=== PATIENT | female | born 1950 | race Caucasian/White ===

== ENCOUNTER 2025-02-05 10:30 | Outpatient (OUT) | payer MEDICARE, OTHER, SELFPAY ==
--- OUTSIDE RECORDS SUMMARY | 2024-04-21 06:55 | XMS_ITS ---
Author Organization The [facility] in [place] Address [address] [place] [address] Care Team Providers Care Emergency Room Clerk Name Role Phone Juan Luis Wilkes MD Primary Care Provider Unavailab le Provider, Lab Unavailable [phone] REASON FOR VISIT jma Encounters Encounter Location Date Provider Diagnosis [facility] [address] [place] [address] 04/21/2024 Lab Provider Plan Of Treatment Next Appt Details Provider Name:Benny escobar, 03/14/2025 11:30:00 AM, [address], [address], [place], [address], Provider Name:Benny escobar, 03/21/2025 10:00:00 AM, [address], [address], [place], [address], Provider Name:Benny escobar, 04/04/2025 11:30:00 AM, [address], [address], [place], [address], Provider Name:Radha Jenkins , 11/24/2025 10:30:00 AM, [address] [place] [address] [place], [address], Progress Notes * Rhiannon COBB KDOB:1950 (74 yo F)Acc No.[id number]:04/21/2024 UNLOCKED PROGRESS NOTE Progress Note Patient: Kevin Rhiannon CLEMENT :?Lab ProviderDOB:1950???Age:73 Y???Sex: FemaleDate:04/21/2024Phone:[phone]:[address], [id number]:Clarice Ashford In:10:57 AM ESTCheck Out:11:00 AM EST Subjective: * Chief Complaints: * 1 . Jma. * Medical History: Objective: * Vitals: Assessment: Plan: * Treatment: * * Electronic signature of Lab Provider on 02/05/2025 at 10:42 AM EDTSign off status: PendingVisit Status:?CHK (Check Out) * Provider: Ananya bashir Provider Date: 0 04/21/2024 Generated for Printing/Faxing/eTransmitting on:?02/05/2025 10:42 AM EDT
--- OUTSIDE RECORDS SUMMARY | 2024-04-29 06:30 | XMS_ITS ---
Author Organization The [facility] in [place] Address [address] [place] [address] Care Team Providers Care Belt Loop Cutter Name Role Phone Juan Luis Wilkes MD Primary Care Provider Unavailab Bill Avilez Unavailable [phone] REASON FOR VISIT CL1 Encounters Encounter Location Date Provider Diagnosis [address] [address] 04/29/2024 iBll Zheng Plan Of Treatment Next Appt Details Provider Name:Benny escobar, 03/14/2025 11:30:00 AM, [address], [address], [place], [address], Provider Name:Benny escobar, 03/21/2025 10:00:00 AM, [address], [address], [place], [address], Provider Name:Benny escobar, 04/04/2025 11:30:00 AM, [address], [address], [place], [address], Provider Name:Radha Jenkins , 11/24/2025 10:30:00 AM, [address] [place] [address] [place], [address], Progress Notes * Rhiannon COBB KDOB:1950 (74 yo F)Acc No.[id number]:04/29/2024 UNLOCKED PROGRESS NOTE Progress Note Patient: Rhiannon YUEN :?Bill Zheng, MDDOB:1950???Age:73 Y ???Sex:FemaleDate:04/29/2024Phone:[phone]:[address] [place], [id number]:Juan Luis Wilkes MD Subjective: * Chief Complaints: * 1 . CL1. * Medical History: Objective: * Vitals: Assessment: Plan: * Treatment: * * Electronic signature of Bill Zheng MD, [id number] on 02/05/2025 at 10:42 AM EDTSign off status: PendingVisit Status:?PEN (Pending) * Provider: Nuha Zheng MD Date: 0 04/29/2024 Generated for Printing/Faxing/eTransmitting on:?02/05/2025 10:42 AM EDT
--- OUTSIDE RECORDS SUMMARY | 2024-04-30 06:30 | XMS_ITS ---
Author Organization The [facility] in [place] Address [address] [place] [address] Care Team Providers Care Wheel Polisher Name Role Phone Juan Luis Wilkes MD Primary Care Provider Tracy Segundo Unavailable [phone] REASON FOR VISIT MD MidLevel Visit Encounters Encounter Location Date Provider Diagnosis [address] [address] 04/30/2024 Tracy James Plan Of Treatment Next Appt Details Provider Name:Benny escobar, 03/14/2025 11:30:00 AM, [address], [address], [place], [address], Provider Name:Benny escobar, 03/21/2025 10:00:00 AM, [address], [address], [place], [address], Provider Name:Benny escobar, 04/04/2025 11:30:00 AM, [address], [address], [place], [address], Provider Name:Radha Jenkins , 11/24/2025 10:30:00 AM, [address] [place] [address] [place], [address], Progress Notes * Rhiannon COBB KDOB:1950 (74 yo F)Acc No.[id number]:04/30/2024 UNLOCKED PROGRESS NOTE Progress Notes Patient: Rhiannon YUEN :?Tracy James NPDOB:1950???Age:73 Y ???Sex:FemaleDate:04/30/2024Phone:[phone]:[address] [facility], [id number]:Juan Luis Wilkes MD Subjective: * Chief Complaints: * 1 . MD MidLevel Visit. * Medical History: Objective: * Vitals: Assessment: Plan: * Treatment: * * Electronic signature of Tracy James NP, [id number] on 02/05/2025 at 10:42 AM EDTSign off status: PendingVisit Status:?VOICEMSG (Voice) * Provider: Jeffrey James NP Date: 0 04/30/2024 Generated for Printing/Faxing/eTransmitting on:?02/05/2025 10:42 AM EDT
--- OUTSIDE RECORDS SUMMARY | 2024-10-21 09:30 | XMS_ITS ---
Author Organization The [facility] in [place] Address [address] [place] [address] Care Team Providers Care Youth Program Director Name Role Phone Juan Luis Wilkes MD Primary Care Provider Unavailab le Provider, Lab Unavailable [phone] REASON FOR VISIT CH Encounters Encounter Location Date Provider Diagnosis [facility] [address] [place] [address] 10/21/2024 Lab Provider Plan Of Treatment Next Appt Details Provider Name:Benny escobar, 03/14/2025 11:30:00 AM, [address], [address], [place], [address], Provider Name:Benny escobar, 03/21/2025 10:00:00 AM, [address], [address], [place], [address], Provider Name:Benny escobar, 04/04/2025 11:30:00 AM, [address], [address], [place], [address], Provider Name:Radha Jenkins , 11/24/2025 10:30:00 AM, [address] [place] [address], [address], Progress Notes * Rhiannon COBB KDOB:1950 (74 yo F)Acc No.[id number]:10/21/2024 UNLOCKED PROGRESS NOTE Progress Note Patient: Kevin Rhiannon CLEMENT :?Lab ProviderDOB:1950???Age:74 Y???Sex: FemaleDate:10/21/2024Phone:[phone]:[address] [place], [id number]:Clarice Ashford In:01:26 PM ESTCheck Out:01:29 PM EST Subjective: * Chief Complaints: * 1 . CH. * Medical History: Objective: * Vitals: Assessment: Plan: * Treatment: * * Electronic signature of Lab Provider on 02/05/2025 at 10:41 AM EDTSign off status: PendingVisit Status:?CHK (Check Out) * Provider: Ananya bashir Provider Date: 0 10/21/2024 Generated for Printing/Faxing/eTransmitting on:?02/05/2025 10:41 AM EDT
--- OUTSIDE RECORDS SUMMARY | 2024-10-29 06:30 | XMS_ITS ---
Author Organization The [facility] in [place] Address [address] [place] [address] Care Team Providers Care Incinerator Operator Name Role Phone Juan Luis Wilkes MD Primary Care Provider Tracy Segundo Unavailable [phone] REASON FOR VISIT MD MidLevel Visit Encounters Encounter Location Date Provider Diagnosis [address] [address] 10/29/2024 Tracy James Plan Of Treatment Next Appt Details Provider Name:Benny escobar, 03/14/2025 11:30:00 AM, [address], [address], [place], [address], Provider Name:Benny escobar, 03/21/2025 10:00:00 AM, [address], [address], [place], [address], Provider Name:Benny escobar, 04/04/2025 11:30:00 AM, [address], [address], [place], [address], Provider Name:Radha Jenkins , 11/24/2025 10:30:00 AM, [address] [place] [address] [place], [address], Progress Notes * Rhiannon COBB KDOB:1950 (74 yo F)Acc No.[id number]:10/29/2024 UNLOCKED PROGRESS NOTE Progress Notes Patient: Rhiannon YUEN :?Tracy James NPDOB:1950???Age:74 Y ???Sex:FemaleDate:10/29/2024Phone:[phone]:[address] [facility], [id number]:Juan Luis Wilkes MD Subjective: * Chief Complaints: * 1 . MD MidLevel Visit. * Medical History: Objective: * Vitals: Assessment: Plan: * Treatment: * * Electronic signature of Tracy James NP, [id number] on 02/05/2025 at 10:42 AM EDTSign off status: PendingVisit Status:?VOICEMSG (Voice) * Provider: Jeffrey James NP Date: 0 10/29/2024 Generated for Printing/Faxing/eTransmitting on:?02/05/2025 10:42 AM EDT
--- OUTSIDE RECORDS SUMMARY | 2024-11-12 05:10 | XMS_ITS ---
Author Organization The [facility] in [place] Address [address] [place] [address] Care Team Providers Care Oracle Database Architect Name Role Phone Juan Luis Wilkes MD Primary Care Provider Unavailab le Provider, Lab Unavailable [phone] Encounters Encounter Location Date Provider Diagnosis [facility] [address] [place] [address] 11/12/2024 Lab Provider Plan Of Treatment Next Appt Details Provider Name:Benny escobar, 03/14/2025 11:30:00 AM, [address], [address], [place], [address], Provider Name:Benny escobar, 03/21/2025 10:00:00 AM, [address], [address], [place], [address], Provider Name:Benny escobar, 04/04/2025 11:30:00 AM, [address], [address] Floor, [place], [address], Provider Name:Radha Jenkins , 11/24/2025 10:30:00 AM, [address] [place] [address] [place], [address], Progress Notes * Rhiannon COBB KDOB:1950 (74 yo F)Acc No.[id number]:11/12/2024 UNLOCKED PROGRESS NOTE Progress Note Patient: Kevin Rhiannon CLEMENT :?Lab ProviderDOB:1950???Age:74 Y???Sex: FemaleDate:11/12/2024Phone:[phone]:[address], [id number]:Clarice Ashford In:09:04 AM ESTCheck Out:09:12 AM EST Subjective: * Chief Complaints: * [address] * Medical History: Objective: * Vitals: Assessment: Plan: * Treatment: * * Electronic signature of Lab Provider on 02/05/2025 at 10:41 AM EDTSign off status: PendingVisit Status:?CHK (Check Out) * Provider: Ananya bashir Provider Date: 0 11/12/2024 Generated for Printing/Faxing/eTransmitting on:?02/05/2025 10:41 AM EDT
--- OUTSIDE RECORDS SUMMARY | 2025-01-20 06:00 | XMS_ITS ---
Author Organization The [facility] in [place] Address [address] [place] [address] Care Team Providers Care Boat Hoist Operator Helper Name Role Phone Juan Luis Wilkes MD Primary Care Provider Unavailab le Provider, Radiology Unavailable [phone] Encounters Encounter Location Date Provider Diagnosis Radiology [address] [address] 01/20/2025 Radiology Provider Plan Of Treatment Next Appt Details Provider Name:Benny escobar, 03/14/2025 11:30:00 AM, [address], [address], [place], [address], Provider Name:Benny escobar, 03/21/2025 10:00:00 AM, [address], [address] Floor, [place], [address], Provider Name:Benny escobar, 04/04/2025 11:30:00 AM, [address], [address] Floor, [place], [address], Provider Name:Radha Jenkins , 11/24/2025 10:30:00 AM, [address] [place] [address], [address], Progress Notes * Rhiannon COBB KDOB:1950 (74 yo F)Acc No.[id number]:01/20/2025 UNLOCKED PROGRESS NOTE Progress Note Patient: Kevin Rhiannon CLEMENT :?Radiology ProviderDOB:1950???Age:74 Y ???Sex:FemaleDate:01/20/2025External Visit ID:[id number]:[phone] Address:[address] [place], [place] [address]Pcp:Juan Luis Wilkes MD Subjective: * Chief Complaints: * * Active Problem List M16.11 Primary osteoarthrit is of right hip Modified On:02/22/2022U Status:wyqanfgjwK84.10Primary osteoarthritis of knee Modified On:09/14/2020U Status:xpxpliqztL11.9Multilevel degenerative disc disease Modified On:09/25/2016U Status:ebflcovqkV37.00Spinal stenosis, unspecified region other than cervical Modified On:07/14/2017U Status:hzqapvpymD81.7Fibromyalgia Modified On:09/14/2020U Status:zhwljwkqnZ90.0Primary osteoarthritis of both hips Modified On:08/14/2016U Status:wsbxldnutJ15.0Primary osteoarthritis of knees, bilateral Modified On:05/22/2016U Status:ifoterfzyA50.0Rheumatism Modified On:09/25/2016U Status:tskjgvmimW20.071Primary osteoarthritis, right ankle and foot Modified On:07/05/2016U Status:prlhmgfttX21.072Primary osteoarthritis, left ankle and foot Modified On:07/05/2016U Status:ctwuuuuxkT48.0Age-related osteoporosis without current pathological fracture Modified On:04/17/2023U Status:ingnsnpdkK98.9Gastroesophageal reflux disease, esophagitis presence not specified Modified On:09/10/2016U Status:giovszfvlU66.012Primary osteoarthritis of left shoulder Modified On:09/25/2016U Status:ljqqenvneT27.12Spondylolisthesis of cervical region Modified On:10/24/2016U Status:wtpfphtewM54.30Degenerative disc disease, cervical Modified On:07/14/2017U Status:gbzexesbuH37.16Spondylolisthesis of lumbar region Modified On:12/02/2016/U Status:qinvwbptsV82.29Other chronic pain Modified On:07/14/2017/U Status:lssgmnbylP10.0Primary osteoarthritis of both knees Modified On:01/14/2017/U Status:yumlmouvaT77.11Primary osteoarthritis of right knee Modified On:01/14/2017U Status:gfaqqdjqoI47.12Primary osteoarthritis of left knee Modified On:01/14/2017U Status:kunjozahtB86.22Ulnar neuropathy of left upper extremity Modified On:01/14/2017U Status:tgxmxtkxgD73.1Postmenopausal disorder Modified On:06/20/2017/U Status:lgydkjrfeG00.9Generalized degenerative joint disease of hand Modified On:01/09/2018U Status:dihvnvifiG01.11Primary osteoarthritis of first carpometacarpal joint of right hand Modified On:09/14/2020U Status:huldjaeapG33.1Female climacteric state Modified On:07/19/2018U Status:jhpaqikexB84.90Diverticulosis Modified On:07/31/2018U Status:snwmwstkdQ35.92Diverticulitis Modified On:08/26/2018U Status:tcykhbugzC00.7Diarrhea, unspecified type Modified On:08/26/2018U Status:jxbfrtdouM55.1Menopausal symptoms Modified On:09/09/2019U Status:egffxxuhvD19.4Breast pain, left Modified On:09/09/2019U Status:gplojgjcuG17.101Disorder of rotator cuff syndrome of right shoulder and allied disorder Modified On:09/14/2020U Status:mvfwyabwmQ71.42History of endometrial cancer Modified On:09/12/2020U Status:oohhuuaogZ93.8Other specified menopausal and postmenopausal disorder Modified On:09/26/2022U Status:igghrwejcQ38.88Other specified disorders of bone density and structure, other site Modified On:02/22/2022U Status:lzampyvdzU71.11Colon cancer screening Modified On:05/20/2022U Status:wotyppjlyX19.11History of gastric ulcer Modified On:02/13/2023W/U Status:zyeqomsydV79.2Postmenopausal atrophic vaginitis Modified On:09/25/2023U Status:ubyqxotiyJ96.13Nuclear sclerosis of both eyes Modified On:01/11/2025 Status:nubqprohyB72.7Decreased vision Modified On:01/11/2025 Status:utryfryhmB03.123Dry eyes Modified On:01/11/2025 Status:uoswlqjffZ05.033Narrow angle of anterior chamber of both eyes Modified On:01/11/2025 Status:confirmed * Medical History: Objective: * Vitals: Assessment: Plan: * Treatment: * * Electronic signature of Radiology Provider on 02/05/2025 at 10:42 AM EDTSign off status: PendingVisit Status:?CHK (Check Out) * Provider: R adiology Provider Date: Generated for Printing/Faxing/eTransmitting on:?02/05/2025 10:42 AM EDT
--- NOTE | 2025-02-05 | XR_ITS ---
The [address] [address] Patient Name: TEE COBB MRN: [id number] date: 1950 Sex: F Assigned Patient Location: LAB Current Patient Location: LAB Accession/Order Number: [id number] Exam Date: 02/05/2025 10:52 Report Date: 02/05/2025 14:38 At the request of: ED GUZMAN Procedure: XR knee RT 3V 3 views of the right knee INDICATION: Right knee pain COMPARISON: None FINDINGS: No fractures age identified. Sclerotic lesion involving the proximal fibular neck may represent bone infarct versus endochondral lesion. Otherwise no fracture-dislocation. Soft tissues unremarkable. XR/XR knee RT 3V IMPRESSION: Negative fracture-dislocation. 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 Impression dictated by: Lambert Cm M.D. 02/05/2025 2:38 PM Dictation Location: [place] [address] Electronically authenticated by: [id number] Y Date: 02/05/2025 14:38
--- NOTE | 2025-02-05 | XR_ITS ---
[address] [address] Patient Name: TEE COBB MRN: [id number] date: 1950 Sex: F Assigned Patient Location: LAB Current Patient Location: LAB Accession/Order Number: [id number] Exam Date: 02/05/2025 10:52 Report Date: 02/06/2025 15:42 At the request of: ED GUZMAN Procedure: XR hip RT min 2V RIGHT HIP - 2 views: CLINICAL HISTORY: Right Hip Pain COMPARISON: None FINDINGS: Mnhr-bp-qitcacqy degenerative changes right hip and right sacroiliac joint. Minimal spurring involving the pubic symphyseal region. Surgical hardware projects over the sacrum. Soft tissues unremarkable. XR/XR hip RT min 2V IMPRESSION: NO ACUTE BONY INJURY. Impression dictated by: Lambert Cm M.D. 02/06/2025 3:42 PM Dictation Location: [place] [address] Electronically authenticated by: [id number] Y Date: 02/06/2025 15:42
--- OUTSIDE RECORDS SUMMARY | 2025-02-05 10:42 | XMS_ITS | Clinical Summary ---
Author Organization [facility] Healthcare Address [address] [place] [address] Care Team Providers Care Disc Sander Name Role Phone Juan Luis Wilkes MD Primary Care Provider [phone] Allergies Active AllergyReactionsCriticalityNoted YgknZkypzvbtSefhfgkuhc66/11/2017 Other reaction(s): Intolerance-unknown Bacitracin-Polymyxin B008/30/2022Fluticasone-SbgdulrvslNsxcuq82/11/2017 Other Reaction(s): Unknown Other reaction(s): Irregular heart rate WttekxcilqZtoraIuw73/07/2744Bbgqeobh-Hurimgxaq-Vixmngomps19/18/2014Tetanus Immune Gvbrquon42/26/2023 Has to take it in 2 doses Tetanus Toxoid-Containing Uplllbnk00/16/2023 Other Reaction(s): Unknown Medications MedicationSigDispense QuantityRefillsLast FilledStart DateEnd DateStatus aspirin 81 MG EC tablet Take by mouth Daily.Active ferrous sulfate 325 (65 Fe) MG tablet Take 1 tablet by mouth in the morning and 1 tablet before bedtime.Active losartan (Cozaar) 100 MG tablet Take 100 mg by mouth in the morning.07/12/2022ctive pantoprazole (ProtoNix) 40 MG EC tablet 1 (one) time each day at the same time.11/04/2022ctive rosuvastatin (Crestor) 20 MG tablet 1 (one) time each day at the same time.05/08/2022ctive Turmeric (CurcuPlex-95) 500 MG capsule Take 2 capsules by mouth in the morning.03/13/2022ctive verapamil SR (Calan SR) 180 MG ER tablet TAKE 1 TABLET (180 MG TOTAL) BY MOUTH IN THE MORNINGActive traZODone (Desyrel) 100 MG tablet Indications:Chronic rhinosinusitisTake 1 tablet (100 mg) by mouth at bedtime 90 tablet 4Active fluticasone (Flonase) 50 MCG/ACT nasal spray Indications:Chronic rhinosinusitisADMINISTER 2 SPRAYS INTO EACH NOSTRIL DAILY SHAKE GENTLY. BEFORE FIRST USE, PRIME PUMP. 48 mL ctive albuterol HFA 90 mcg/act inhaler Indications:Acute bronchitis due to other specified organismsInhale 2 puffs every 4 (four) hours if needed for wheezing 18 g ctive ketoconazole (NIZOral) 2 % shampoo Indications:Androgenic alopeciaLather on scalp 2x a week, leave on 5 min before rinsing x 30 days 120 mL ctive rizatriptan [employer]ARDS (Maxalt-ETCHER PR[employer]ED [employer] BOARDS) 10 MG disintegrating tablet Indications:Migraine without aura and without status migrainosus, not intractableTake 1 tablet (10 mg) by mouth 1 (one) time if needed for migraine May repeat in 2 hours if unresolved. Do not exceed 30 mg in 24 hours. 27 tablet 5Active methylPREDNISolone (Medrol Dospak) 4 MG tablets Indications:Right hand pain,Arthritis of carpometacarpal (CMC) joint of right thumb,Primary osteoarthritis of right handFollow schedule on package instructions 21 tablet 5Active Active Problems ProblemNoted DateDiagnosed DateMedicare annual wellness visit, subsequent 09/09/2024 Assessment & Plan (09/09/2024 11:43 AM EDT): Reviewed labs. Discussed proper diet and regular aerobic exercise. Need aerobic exercise 5-6 days aweek for 30 minutes at a time. Smaller portions and limit total calories. Colonoscopy every 10 years. Tetanus every 10 years. Advised not to smoke. Essential hypertension, xdvrsv7211/05/2023 Assessment & Plan (02/04/2024 11:09 AM EDT): BP controlled and monitor PRN. Assessment & Plan (11/05/2023 12:25 PM EDT): BP controlled and monitor PRN. Migraine without aura and without status migrainosus, not khjebzfeqvs32/31/2024 Assessment & Plan (02/04/2024 11:10 AM EDT): ALVAREZ stable and use maxalt PRN. Assessment & Plan (11/05/2023 12:26 PM EDT): C/o migraines and start maxalt PRN. Rheumatoid arthritis involving multiple sites with positive rheumatoid factor 11/05/2023 Assessment & Plan (09/09/2024 11:43 AM EDT): Continued pain and not seen by rheumatology for years. Repeat labs and refer to new regional ehs manager. Assessment & Plan (02/04/2024 11:10 AM EDT): Follow with specialist Szybmv3211/05/20238654Licswmemmssy38/31/3291Fovaxdabqhhart54/31/2024yslipidemia 11/05/2023Lumbar pgiymvnszer81/31/2024 Assessment & Plan (11/05/2023 12:26 PM EDT): Pain stable and follow with pain management. Gastroesophageal reflux disease without mvtzgtgzobw95/31/2024 Assessment & Plan (02/04/2024 11:09 AM EDT): Symptoms controlled with protonix and continue. Assessment & Plan (11/05/2023 12:25 PM EDT): Symptoms controlled with protonix and continue. Chronic ulhthmqprkaalu45/31/2024 Assessment & Plan (11/05/2023 12:25 PM EDT): Symptoms recently worse and resume daily nasal steroid. Internal derangement of right tpbpikcb66/01/2024ge-related osteoporosis without current pathological cyimbzqs98/29/2024 Resolved Problems ProblemNoted DateDiagnosed DateResolved DateAcute bronchitis due to other specified aotwcyaqu06/08/2024 Assessment & Plan (04/15/2024 2:14 PM EST): Take antibiotics for 7 days. Use sudafed or other decongestants as needed. Use robitussin or robittussin-DM for cough. Use afrin for congestion but no longer than 3 days. Use mucinex to bring up phlegm. Use motrin or tylenol for fever, aches or pains. Increase fluid intake and rest. Should improve over next 5-7 days and if no better or worse call office. Assessment & Plan (02/04/2024 11:08 AM EDT): Take antibiotics for 5 days and will be in system 10-12 days. Use sudafed or other decongestants asneeded. Use robitussin or robittussin-DM for cough. Use afrin for congestion but no longer than 3 days. Use mucinex to bring up phlegm. Use motrin or tylenol for fever, aches or pains. Increase fluidintake and rest. Should improve over next 5-7 days and if no better or worse call office. Acute pain of right Family History Medical HistoryRelationNameCommentsCancerFatherHypertensionFatherMental illness FatherHeart diseaseMotherHypertensionMotherStrokeMotherRelationNameStatus CommentsFatherDeceasedMotherDeceased Social History Tobacco UseTypesPacks/DayYears UsedDateSmoking Tobacco: Never Tobacco Cessation:Counseling Given: Not Answered Alcohol UseStandard Drinks/WeekCommentsYes0 (1 standard drink = 0.6 oz pure alcohol)monthly or lessPHQ-2AnswerDate RecordedPatient Health Questionnaire-2 Kgweb642CommentsUnknownSex and Gender InformationValueDate RecordedSex Assigned at EffudVvqafb81/30/2023 1:15 PM ESTLegal SexFemale 06/19/2022 6:43 PM EDTGender IdentityNot on fileSexual OrientationNot on file Last Filed Vital Signs Vital SignReadingTime TakenCommentsBlood Qtndlsdu890/8006 11:04 AM EDT Vqxgg2606 11:04 AM NTKXlnjohzauum54.6 ??C (97.8 ??F)09/09/2024 11:04 AM EDTRespiratory Qaqm276409/09/2024 11:04 AM EDTOxygen Lmwildtade12%09/09/2024 11:04 AM EDTInhaled Oxygen Concentration--Ndvaqq65.2 kg (115 lb)09/09/2024 11:04 AM JQPAdwqtw918.5 cm (5' 2 )09/09/2024 11:04 AM EDTBody Mass Index21.03009/09/2024 11:04 AM EDT Plan of Treatment DateTypeDepartmentCare Team (Latest Contact Info)Lglimllixta96/18/2025 1:10 PM ESTOffice Visit [facility] [address] [place] [address] Sari Eagle APRN-[employer] OPERATOR [address] [place] [address] Health MaintenanceDue DateLast DoneCommentsCT Itwqljwtkxvj94/25/1952FIT-DNA 1950FIT1950FOBT1950 4922Gvtpxddkcagss58/25/1952Influenza Vaccine (#1)51, 02/02/2023, 01/18/2022, Additional history exists Ctkzzzeyz18/8860Zhrxbfapzmz28/10/548425/3Colorectal Cancer Uzuytjpgu25/10/2033Pneumococcal Vaccine: 65+ WzxahKroefotdr19/08/2019, 07/07/2018, 02/19/2017, Additional history exists Insurance Care Teams Team MemberRelationshipSpecialtyStart DateEnd Date Juan Luis Wilkes [facility]
--- OUTSIDE RECORDS SUMMARY | 2025-02-05 10:42 | XMS_ITS | Clinical Summary ---
Author Organization [facility] Address [address] [place] [address] Care Team Providers Care Prompt Care Rn Name Role Phone Unavailable Primary Care Provider Unavailabl e Allergies Active AllergyReactionsCriticalityNoted DateCommentsFluticasone-Salmeterol 2022acitracin-Polymyxin B008/30/2022Tetanus Immune Bqdbafbv66/26/2023 Has to take it in 2 doses Medications MedicationSigDispense QuantityRefillsLast FilledStart DateEnd DateStatus Verapamil 180 MG Tab CR TAKE 1 TABLET (180 MG TOTAL) BY MOUTH IN THE OWQDNQJ6407/20/2022ctive losartan 100 MG tablet Take 1 tablet by mouth daily every morning.07/12/2022ctive Albuterol (2.5 MG/3ML) 0.083% inhalation solution INHALE 3 ML BY NEBULIZATION 3 TIMES A DAY FOR 10 DAYS.07/10/2022ctive fluticasone 50 MCG/ACT Suspension nasal spray SPRAY 2 SPRAYS INTO EACH NOSTRIL IN THE PTFDBWJ1808/27/2022ctive Rosuvastatin 20 MG tablet Take 1 tablet by mouth daily.05/08/2022ctive traZODone 100 MG tablet Take 1 tablet by mouth at bedtime.05/12/2022ctive ferrous sulfate 325 (65 Fe) MG tablet ferrous sulfate 325 mg (65 mg iron) tablet TAKE 1 TABLET BY MOUTH TWICE A DAYActive denosumab (PROLIA) 60 MG/ML SOSY injection Inject 1 mL under the skin every 6 months.Active Cholecalciferol 50 MCG (1999 UT) capsule Take 1 capsule by mouth daily.03/13/2022ctive Aspirin [address] tablet Take by mouth daily.Active Apoaequorin (PREVAGEN PO) Take by mouth.Active Multiple Vitamins-Minerals (AIRBORNE PO) Take by mouth.Active Turmeric (QC TUMERIC COMPLEX PO) Take by mouth.Active Social History Tobacco UseTypesPacks/DayYears UsedDateSmoking Tobacco: NeverSmokeless Tobacco: NeverCommentsUnknownSex and Gender InformationValueDate RecordedSex Assigned at BirthNot on fileLegal HcxFddydr77/19/2023 8:34 PM EDTGender Identity Not on fileSexual OrientationNot on file Last Filed Vital Signs Vital SignReadingTime TakenCommentsBlood Pressure--Pulse--Temperature-- Respiratory Rovv880308/30/2022 1:24 PM EDTOxygen Saturation--Inhaled Oxygen Concentration--Yngnmj13.3 kg (113 lb)2022 1:24 PM LTCQwihil129.9 cm (5' 1 )2022 1:24 PM EDTBody Mass Index21.35008/30/2022 1:24 PM EDT Plan of Treatment Health MaintenanceDue DateLast DoneCommentsDEXA SCAN BRDVWZMKKQ15/25/1951 HEPATITIS C VIRUS CNDNJBLWQ42/25/1952ERVICAL CANCER SCREENING DISCUSSION 08/29/1972LIPID TBJWLOEUL89/25/1992MAMMOGRAM SCREENING FRHMJUTIRR17/25/1992 COLORECTAL CANCER SCREENING TBGSBXHBHZ83/25/1997ZOSTER (SHINGLES) VACCINE (1 of 2)08/29/2001COVID-19 VACCINE (2024- season)2024INFLUENZA VACCINE (#1)510/, 01/14/2021, 01/25/2020, Additional history existsRSV VACCINE (1 - 1-dose 75+ series)08/29/2026PNEUMOCOCCAL VACCINE SERIESCompleted 02/12/2019, 07/07/2018, 02/19/2017, Additional history existsHEP B VACCINEAged OutNo longer eligible based on patient's age to complete [place] [address]
--- OUTSIDE RECORDS SUMMARY | 2025-02-05 10:43 | XMS_ITS | Clinical Summary ---
Author Organization [facility] Address [address], [address] [place] [address] Care Team Providers Care Form Maker Plaster Name Role Phone Chris Melchor DO Primary Care Provider [phone] Allergies Active AllergyReactionsCriticalityNoted DateComments Uxuxigqd-Tybevvqjh-Uvqupjovmf39/18/0077Jzapmtrkl32/18/2014 Medications MedicationSigDispense QuantityRefillsLast FilledStart DateEnd DateStatus metroNIDAZOLE (METROCREAM) 0.75 % cream Apply topically daily. Apply topically 2 times daily.Active naproxen (NAPROSYN) 500 MG tablet Take 500 mg by mouth 2 times daily (with meals).Active rosuvastatin (CRESTOR) 20 MG tablet Take 20 mg by mouth daily.Active lansoprazole (PREVACID) 30 MG capsule Take 30 mg by mouth daily.Active hydroxyurea (HYDREA) 500 MG chemo capsule Take 500 mg by mouth daily.Active cyclobenzaprine (FLEXERIL) 10 MG tablet Take 10 mg by mouth nightly.Active potassium chloride SA (K-DUR;KLOR-CON M) 20 MEQ tablet Take 20 mEq by mouth daily.Active lisinopril-hydrochlorothiazide (PRINZIDE;ZESTORETIC) 10-12.5 MG per tablet Take 1 tablet by mouth daily.Active verapamil (CALAN-SR) 180 MG CR tablet Take 180 mg by mouth nightly.Active ibuprofen (ADVIL;MOTRIN) 800 MG tablet Take 800 mg by mouth every 8 hours as needed for Pain.Active estradiol (ESTRACE) 1 MG tablet Take 1 mg by mouth daily.Active Social History Tobacco UseTypesPacks/DayYears UsedDateSmoking Tobacco: Never Assessed CommentsNoSex and Gender InformationValueDate RecordedSex Assigned at BirthNot on fileLegal QgbAcokmn94/16/2013 1:51 PM EDTGender IdentityNot on fileSexual OrientationNot on file Last Filed Vital Signs Vital SignReadingTime TakenCommentsBlood Gtkurtsm459/50104/24/2013 4:32 PM EST Zzmet161502/22/2014 4:32 PM JVBWdkeicubvrg95.4 ??C (97.5 ??F)02/22/2014 4:32 PM ESTRespiratory Vbva260904/24/2013 4:32 PM ESTOxygen Rtqcoxipdu188%02/22/2014 4:32 PM ESTInhaled Oxygen Concentration--Nyisln22 kg (130 lb)02/22/2014 4:32 PM EST Wggzxk554.5 cm (5' 2 )02/22/2014 4:32 PM ESTBody Mass Index23.7802/22/2014 4:32 PM EST Plan of Treatment Not on file Care Teams Team MemberRelationshipSpecialtyStart DateEnd Date Chris Melchor DO PCP - Gympvgh42/18/14
--- OUTSIDE RECORDS SUMMARY | 2025-02-05 10:43 | XMS_ITS | Patient Health Record ---
Author Organization The [facility] in [place] Address [address] [place] [address] Care Team Providers Care Video Intern Name Role Phone Juan Luis Wilkes MD Primary Care Provider Unavailab Benny Davenport Unavailable [phone] Taylor Crowley Unavailable [phone] Provider, Lab Unavailable [phone] Provider, Radiology Unavailable [phone] Bill Zheng Unavailable [phone] Tracy James Unavailable [phone] Allergies Allergen (clinical drug ingredient) Drug/Non Drug Allergy documented on EMR Reaction Allergy Type Onset Date Status Neosporin (bacitracin/neomycin/polymyxin B topicalAllergy: RASH;Drug Allergy ActiveNeomycin Sulfate (neomycin)Allergy: RASH;Drug AllergyActiveAdvair Diskus (fluticasone-salmeterol)Allergy: OTHER; Notes: rapid heart rate-admitted to hosp.Drug AllergyActivebacitracinbacitracinRASHDrug AllergyActiveTetanus Toxoids UnknownDrug AllergyActive Results Component Value Reference Range Notes CBC WITH ONCO AUTO DIFF (HWP ) (Not yet reviewed by provider) Interpretation: Performing Lab:[facility], [address] [place] [address], [address] Notes/Report: CBC WITH DIFF PERFORMED AT: [facility] [id number] WBC 8.61 (3.80 - 10.60) x10^3ul RBC4.93(4.20 - 5.40) x10^6lnOSHAJQUCTM08.6(12.0 - 16.0) G/DAAOCOPVMYCE38.3(37.0 - 47.0) %MCV89.9(81.0 - 99.0) flMCH29.6(27.0 - 33.0) NYGPXH64.0(30.0 - 37.0) G/DLRDW-SD44.4(37.0 - 49.0) fzIPH109(130 - 400) x10^3ul Performed at: [facility] [address] [place] [address] PH: FX: NEUTROPHIL CT4.90(1.50 - 7.00) x10^3ulLYMPHOCYTE CT2.61(0.96 - 5.40) x10^3ul MONOCYTE CT0.55(0.10 - 0.90) x10^3ulEOSINOPHIL CT0.46(0.00 - 0.40) x10^3ul BASOPHIL CT0.07(0.00 - 0.16) x10^3ulIMMATURE GRAN CT0.02(0.00 - 0.11) x10^3ul NRBC #0.00(0.00 - 0.08)IRON, TIBC w SAT AND FERRITIN (Not yet reviewed by provider) Interpretation: Performing Lab:[facility], [address] , [place], [address] Notes/Report: SST FACILITY: [facility] [id number](37 - 170) UG/TYRKUQ193(250 - 450) UG/DL% UCGKEGBSII53(20 - 55) %PWZGMBTS212.0(11.0 - 415.0) NG/MLCMP (COMP MET FROST) w/eGFR CKD-EPI (Not yet reviewed by provider) Interpretation: Performing Lab:[facility], [address] [place] [address], [address] Notes/Report: NON FAST PERFORMED AT: [facility] [id number](74 - 106) MG/DLBUN16(4 - 25) MG/DLCREATININE, BLOOD0.70 (0.52 - 1.04) MG/DLGFR by CKD-EPI91.8(60.0) ML/M1.3WNBHNT255(137 - 145) MMOL/L POTASSIUM4.0(3.5 - 5.1) MMOL/SBGQJKROZ431(98 - 107) MMOL/LCARBON QEKSITT84(22 - 30) MMOL/LCALCIUM9.9(8.6 - 10.6) MG/DL Performed at: [facility] [address] [place] [address] PH: FX: ALBUMIN4.7(3.5 - 5.0) G/DLTOTAL PROTEIN7.2(6.3 - 8.2) G/DLALK PHOS81(38 - 126) U/LALT (SGPT)28(1 - 35) U/LAST (SGOT)39(15 - 46) U/LBILIRUBIN, TOT0.7(0.2 - 1.3) MG/DLIRON, TIBC w SAT AND FERRITIN (Not yet reviewed by provider) Interpretation: Performing Lab:[facility], [address] [place], [place], [id number] Notes/Report: CBC WITH DIFF LAV,SST FACILITY: [facility] [id number](37 - 170) UG/IOEMLF003(250 - 450) UG/DL% ZFGDPXYVJT29(20 - 55) %AFIJEOBI726.0(11.0 - 415.0) NG/MLTHIN PREP PAP TEST Reviewed date:10/25/2024 08:35:16 AM Interpretation: Performing Lab:[facility] ([facility]), [address], [place]. [address] PH:[phone] Notes/Report:THIN PREP PAP TESTSEE RESULTS BELOW SPECIMEN SOURCE Thin Prep Vagina LAB AP CASE REPORT: Gynecologic Cytology Report Case: [id number] Authorizing Provider: [place] MD Collected: 10/21/2024 1300 Ordering Location: [facility] Received: 10/22/[address] [place] [address] Lab First Screen: HILDA Salazar(ASCP) Specimen: Thin Prep Pap, Vagina LAB AP COMMISSIONING EDITOR SPECIMEN ADEQUACY: Satisfactory for evaluation Partially obscuring inflammation LAB AP COMMISSIONING EDITOR INTERPRETATION: NEGATIVE FOR INTRAEPITHELIAL LESION OR MALIGNANCY at 1521 EDT LAB AP COMMISSIONING EDITOR OTHER FINDINGS: The cytologic changes of atrophy are noted. LAB AP COMMISSIONING EDITOR ADDITIONAL INFORMATION: The Pap test is a screening test with an inherent, but low, probability of error. The Pap test is primarily effective for the diagnosis and prevention of squamous cell carcinoma. Regular screening is critical for prevention. ThinPrep liquid-based slides, which meet the [employer] criteria for automated screening, have been screened by the [facility] (as of 12/22/06) along with an additional manual rescreening by a treatment plant operator and, if indicated, by a pathologist. PERFORMED AT [address],[place] [address] MAMM SCREEN BILAT MARIBETH 3D GLOBAL* Reviewed date:01/20/2025 12:20:56 PM Interpretation: Performing Lab: Notes/Report: [facility], [address] [address] Name: Evan Piper : 1950 Gender: F Referring Provider: [place] Crowley Exam: MAMM GLOBAL SCREEN BILAT MARIBETH 3D Exam Start: 01/20/2025 Accn: [id number] INDICATION/HISTORY: Screening mammogram Jesi score demonstrates a five-year risk of 1.6% and lifetime risk of 3.9%. PROCEDURE: Bilateral digital screening mammogram with CAD assistance including 3D tomosynthesis Digital CC and MLO views were obtained with computer-aided detection. Low-dose full-field digital breast 3D tomosynthesis examination was performed with a synthetic C-view 2D mammogram. COMPARISON: 01/20/24 FINDINGS: There are scattered areas of fibroglandular density. Areas of asymmetric breast density tissue distribution unchanged. No new focal increasing asymmetric density. Coarse calcific densities scattered. No evidence for calcium focality. Tomographic images demonstrate no evidence for occult mass or occult architectural distortion. IMPRESSION: BI-RADS 2 - BENIGN FINDINGS. ONE-YEAR FOLLOWUP RECOMMENDED. Mammographic facilities accredited by the [employer]. Transcribed by: DRAGAN PRAKASH 01/20/2025 10:15 Sincerely, EMILIE SOUTH MD Electronically Signed: 01/20/2025 10:35 Thank you for referring TEE COBB to the [facility] [place] [facility], [facility]. [facility] - [facility], [id number] WITH ONCO AUTO DIFF (HWP) (Not yet reviewed by provider) Interpretation: Performing Lab:[facility], [address] , [place], [place], [id number] Notes/Report: CBC WITH DIFF LAV,SST FACILITY: [facility] [id number](3.80 - 10.60) x10^6tuRXJ9.71(4.20 - 5.40) x10^6ul OSTVOXXQAF63.4(12.0 - 16.0) G/QKJPLVHWTDIQ76.2(37.0 - 47.0) %MCV93.8(81.0 - 99.0) flMCH32.7(27.0 - 33.0) ZZEOQS39.8(30.0 - 37.0) G/DLRDW-SD47.3(37.0 - 49.0) pnJDB768(130 - 400) x10^3ulNEUTROPHIL CT8.88(1.50 - 7.00) x10^3ulLYMPHOCYTE CT 2.08(0.96 - 5.40) x10^3ulMONOCYTE CT0.48(0.10 - 0.90) x10^3ulEOSINOPHIL CT0.05 (0.00 - 0.40) x10^3ulBASOPHIL CT0.04(0.00 - 0.16) x10^3ulIMMATURE GRAN CT0.05 (0.00 - 0.11) x10^3ulNRBC #0.00(0.00 - 0.08)CMP (COMP MET FROST) w/eGFR CKD-EPI (Not yet reviewed by provider) Interpretation: Performing Lab:[facility], [address], [place], [address] Notes/Report: CBC WITH DIFF LAV,SST FACILITY: [facility] [id number](74 - 106) MG/DLBUN26(4 - 25) MG/DLCREATININE, BLOOD1.14 (0.52 - 1.04) MG/DLGFR by CKD-EPI50.8(60.0) ML/M1.4DCARLE904(135 - 145) MMOL/L POTASSIUM4.7(3.5 - 5.1) MMOL/UJKOMUYUE337(98 - 110) MMOL/LCARBON XONURDN55(22 - 30) MMOL/WZDJOFNP49.5(8.6 - 10.6) MG/DLALBUMIN4.9(3.5 - 5.0) G/DLTOTAL PROTEIN 7.5(6.3 - 8.2) G/DLALK PHOS68(38 - 126) U/LALT (SGPT)41(1 - 35) U/LAST (SGOT)29 (15 - 46) U/LBILIRUBIN, TOT0.7(0.2 - 1.3) MG/DLCBC WITH ONCO AUTO DIFF (HWP) (Not yet reviewed by provider) Interpretation: Performing Lab:[facility], [address] [place] [address], [address] Notes/Report: PERFORMED AT: [facility] [id number](3.80 - 10.60) x10^6htYNT1.99(4.20 - 5.40) x10^6ul QSZCSSVEDM32.0(12.0 - 16.0) G/VTGMDQTTIVRI30.7(37.0 - 47.0) %MCV91.6(81.0 - 99.0) flMCH30.1(27.0 - 33.0) RJYGPG97.8(30.0 - 37.0) G/DLRDW-SD49.0(37.0 - 49.0) afIVP107(130 - 400) x10^3ul Performed at: [facility] [address] [place] [address] PH: FX: NEUTROPHIL CT4.32(1.50 - 7.00) x10^3ulLYMPHOCYTE CT1.53(0.96 - 5.40) x10^3ul MONOCYTE CT0.43(0.10 - 0.90) x10^3ulEOSINOPHIL CT0.23(0.00 - 0.40) x10^3ul BASOPHIL CT0.05(0.00 - 0.16) x10^3ulIMMATURE GRAN CT0.01(0.00 - 0.11) x10^3ul NRBC #0.00(0.00 - 0.08)CMP (COMP MET FROST) w/eGFR CKD-EPI (Not yet reviewed by provider) Interpretation: Performing Lab:[facility], [address] [place] [address], [address] Notes/Report: PERFORMED AT: [facility] [id number](74 - 106) MG/DLBUN13(4 - 25) MG/DLCREATININE, BLOOD0.90 (0.52 - 1.04) MG/DLGFR by CKD-EPI67.5(60.0) ML/M1.5EOVDES605(135 - 145) MMOL/L POTASSIUM4.4(3.5 - 5.1) MMOL/NVWPVPJZC082(98 - 110) MMOL/LCARBON HSCBLMI09(22 - 30) MMOL/LCALCIUM9.7(8.6 - 10.6) MG/DL Performed at: [facility] [address] [place] [address] PH: FX: ALBUMIN4.6(3.5 - 5.0) G/DLTOTAL PROTEIN7.2(6.3 - 8.2) G/DLALK PHOS69(38 - 126) U/LALT (SGPT)31(1 - 35) U/LAST (SGOT)34(15 - 46) U/LBILIRUBIN, TOT0.7(0.2 - 1.3) MG/DL Reason For Referral No Information Medications Medication SIG (Take, Route, Frequency, Duration) Notes Start Date End Date Status Albuterol Sulfate 108 (90 Base) MCG/ACT 2 puffs Inhalation prn ActivetraZODone HCl 100 MG1 tablet at bedtime as needed Orally Once a dayActive Aspir-81ActiveTurmericActivePantoprazole Sodium 40 MGTAKE 1 TABLET BY MOUTH EVERY DAY Orally Once a day; Duration: 90 daysActiveVerapamil HCl ER 180 mg/24 hours1 capsule, extended release DAILY Not-TakingPrevagenActiveZyrTEC UpdiixoMjf-SxoehyDytjgicoAsg-ScdouoXdfrzdp 20 MG1 tablet Orally DAILY ActiveDramamineginger chewsNot-TakingCeleBREX 200 MG1 capsule with food Orally Once a dayActiveVitamin D3 50 MCG (2000 UT)1 tablet Orally Once a dayActive CoQ-10ActiveXyzalActiveFerrous Sulfate 325 (65 Fe) MG1 tablet Orally BIDActive Fluticasone Propionate 50 MCG/ACT1 spray in each nostril Nasally Once a day ActiveMiscellaneousneurivaNot-TakingLosartan Potassium 100 MG1 tablet Orally Once a owfGbeysdIpyniu92/27/9820Ija-HnwsngRcepekskaPsv-Bphpdg Immunizations Vaccine Route Administration Date Status Comme nts Flu, (99981) -historic- 3-va lent, Split, 3 yrs & older, for IM use Unknown 01/22/2010 Administered Flu, (76438) -historic- 3-valent, Split, 3 yrs & older, for IM useUnknown 03/02/20129472GtegmvtkayipLKKO-UCA-2 (COVID 19 Moderna - 100mcg/0.5mL)Unknown 05/23/20201958WuhflbcgmvkbODDQ-VDC-0 (COVID 19 Moderna - 100mcg/0.5mL)Unknown 0014RzcfttsksobdCHZK-PRW-8 (COVID 19 Moderna - Booster 0.25mL)Unknown 2504RdhtwzadphvoJSXR-WOG-8 (COVID 19 Moderna - Booster 0.25mL)Unknown 2Administered Social History Tobacco Use: Social History Observation Description Date Details (start date - stop date) Never Smoker NA - NA Tobacco Use/Smoking Question Answer Notes Patient is a nonsmoker Alcohol Screen (Audit-C) Question Answer Notes Did you have a drink containing alcohol in the p ast year? 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 from Ze Retired from Ze Retired from Ze Retired from Ze Retired from Ze Retired from Ze Retired from Ze Retired from Ze Retired from Ze Retired from Ze Retired from Ze Retired from Ze Retired from Ze Problems Problem Type SNOMED Code ICD Code Onset Dates Problem Status W/U Status Risk Notes Problem Age-related osteoporosis (640665 002) Age-related osteoporosis without current pathological fracture (M81.0) ActiveconfirmedProblemChronic pain (40807112)Other chronic pain (G89.29)Active confirmedProblemLocalized, primary osteoarthritis of the ankle and/or foot (466322348)Primary osteoarthritis, right ankle and foot (M19.071)Activeconfirmed ProblemLocalized, primary osteoarthritis of the ankle and/or foot (612287054) Primary osteoarthritis, left ankle and foot (M19.072)ActiveconfirmedProblem Fibromyalgia (283032388)Fibromyalgia (M79.7)ActiveconfirmedProblemDisorder of bone (36620508)Other specified disorders of bone density and structure, other site (M85.88)ActiveconfirmedProblemPostmenopausal atrophic vaginitis (38021910) Postmenopausal atrophic vaginitis (N95.2)ActiveconfirmedProblemOsteoarthritis of knee (727657784)Primary osteoarthritis of right knee (M17.11)Activeconfirmed ProblemOsteoarthritis of knee (293890407)Primary osteoarthritis of left knee (M17.12)ActiveconfirmedProblemDiverticular disease of colon (255703740) Diverticulosis (K57.90)ActiveconfirmedProblemGastroesophageal reflux disease (912657638)Gastroesophageal reflux disease, esophagitis presence not specified (K21.9)ActiveconfirmedProblemDegeneration of cervical intervertebral disc (37433277)Degenerative disc disease, cervical (M50.30)ActiveconfirmedProblem Localized, primary osteoarthritis of the shoulder region (891024573)Primary osteoarthritis of left shoulder (M19.012)ActiveconfirmedProblemColon cancer screening (219878253)Colon cancer screening (Z12.11)ActiveconfirmedColonoscopy 2012 and 2018 extremely difficult colon due to significant looping and possible fixed colon. No evidence of colon polyps.ProblemLocalized, primary osteoarthritis of the pelvic region and thigh (086423938)Primary osteoarthritis of right hip (M16.11)ActiveconfirmedProblemOsteoarthritis of knee (138300590) Primary osteoarthritis of both knees (M17.0)ActiveconfirmedProblemNuclear senile cataract (860991493)Nuclear sclerosis of both eyes (H25.13)Activeconfirmed ProblemDiverticulitis (73358529)Diverticulitis (K57.92)ActiveconfirmedProblem Acquired spondylolisthesis (639123144)Spondylolisthesis of cervical region (M43.12)ActiveconfirmedProblemLesion of ulnar nerve (227176436)Ulnar neuropathy of left upper extremity (G56.22)ActiveconfirmedProblemAcquired spondylolisthesis (599774730)Spondylolisthesis of lumbar region (M43.16)ActiveconfirmedProblem Degeneration of intervertebral disc (57407360)Multilevel degenerative disc disease (M53.9)ActiveconfirmedProblemLocalized, primary osteoarthritis of the pelvic region and thigh (346699601)Primary osteoarthritis of both hips (M16.0) ActiveconfirmedProblemLocalized, primary osteoarthritis of the hand (253006906) Primary osteoarthritis of first carpometacarpal joint of right hand (M18.11) ActiveconfirmedProblemBilateral arthritis of knees (9561056971235352)Primary osteoarthritis of knees, bilateral (M17.0)ActiveconfirmedProblemPersonal history of primary malignant neoplasm of female genital organ (110422281)History of endometrial cancer (Z85.42)ActiveconfirmedProblemSpinal stenosis, excluding cervical region (disorder) (179603172)Spinal stenosis, unspecified region other than cervical (M48.00)ActiveconfirmedProblemMenopausal symptom (50114498) Menopausal symptoms (N95.1)ActiveconfirmedProblemPain of breast (94029843)Breast pain, left (N64.4)ActiveconfirmedProblemDecreased vision (478819251)Decreased vision (H54.7)ActiveconfirmedProblemPerimenopausal disorder (306912022)Other specified menopausal and postmenopausal disorder (N95.8)ActiveconfirmedProblem Female climacteric state (697959946)Female climacteric state (N95.1)Active confirmedProblemLocalized, primary osteoarthritis (945515407)Primary osteoarthritis of knee (M17.10)ActiveconfirmedProblemDry eyes (240688684)Dry eyes (H04.123)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 (718893240)Narrow angle of anterior chamber of both eyes (H40.033)ActiveconfirmedProblemDiarrhea (79579511)Diarrhea, unspecified type (R19.7)ActiveconfirmedProblemRheumatism (484527535)Rheumatism (M79.0)ActiveconfirmedProblemRupture of right rotator cuff (44468243166672899) Disorder of rotator cuff syndrome of right shoulder and allied disorder (M75.101)ActiveconfirmedProblemMenopause (268140223)Postmenopausal disorder (N95.1)ActiveconfirmedProblemOsteoarthritis (197155402)Generalized degenerative joint disease of hand (M15.9)ActiveconfirmedProblemHistory of gastric ulcer (614028707)History of gastric ulcer (Z87.11)ActiveconfirmedEGD 2015 gastric ulcers harley test negative Vital Signs Heart Rate 57 /min 10/21/2024 Blood pressure qglybofrh32 mm Hg10/21/20242129Mphxwx68 in10/21/2024lood pressure cpmedzql983 mm Hg10/21/20240768Nhdemi872 lbs10/21/2024BMI21.16 kg/m210/21/2024 Encounters Encounter Location Date Provider Diagnosis Gynecology [facility] [address] [place] [address] 09/30/2024 Taylor Crowley Breast cancer screening Z12.[address] [address] 01/20/2025 Radiology Provider [facility] [address] [place], [place] [address]/Lab Provider [facility] [address] [address]/11/2024[facility] [address] [address]/Lab ProviderOphthalmology Brandon [address] [place] [address]/10/2024Micracquel [place] Nuclear sclerosis of both eyes H25.13 ; Decreased vision H54.7 ; Dry eyes H04.123 and Narrow angle of anterior chamber of both eyes H40.033Gynecology [facility] [place] [address]/jonny Crowley Encounter for gynecological examination (general) (routine) without abnormal findings Z01.419 ; Primary osteoarthritis of both hips M16.0 ; Postmenopausal atrophic vaginitis N95.2 and Other specifieddisorders of bone density and structure, other site M85.[address] [address]/Mohammaajith Vincent [address] [place] [address]/ Tracy Da Silva [facility] [place], [place] [address] [address]/ariel James Assessments Encounter Date Diagnosis (ICD Code) Assessment Notes Treatment Notes Treatment Clinical Notes Section Notes 10/21/2024 Encounter for gyneco logical examination (general) (routine) without abnormal findings (ICD-10 - Z01.419) 10/21/2024Primary osteoarthritis of both hips (ICD-10 - M16.0)01/11/2025Nuclear sclerosis of both eyes (ICD-10 - H25.13) SONIA REFERRAL CAT 1) PHACO OD AIMING FOR DISTANCE, IVS NPO DISC R/B/O OF CAT SX DISC WHAT TO EXPECT DAY OF SURGERY SHE HAS DONE SUCCESSFUL MONOVISION W/ CONTACTS W/ OD DISTANCE. WILL NEED CAT 2 DISC MONOVISION OPTION W/ CAT SX DISC MULTIFOCAL IOL & XTRA COST 01/11/2025Decreased vision (ICD-10 - H54.7)09/30/2024reast cancer screening (ICD-10 - Z12.31)01/11/2025Dry eyes (ICD-10 - H04.123)10/21/2024Postmenopausal atrophic vaginitis (ICD-10 - N95.2)10/21/2024Other specified disorders of bone density and structure, other site (ICD-10 - M85.88)01/11/2025Narrow angle of anterior chamber of both eyes (ICD-10 - H40.033)10/21/20247910Pkhma00 minutes spent with patient. Patient needs mammogram after 01/19/2025. DEXA scan will be due after November 17, 2025. Please arrange for patient to receive IV Reclast April 2025 and she will need aCMP 1 week prior to the infusion. I have strongly encouraged regular weightbearing exercise and strength training as well even lifting [employer] soup cans if that is all she has for weights. Referral to [facility] for IV ReClast sent Mammogram order is in the computer Plan Of Treatment Pending Test Test Name Order Date Colonoscopy 07/31/2018 CMP (COMPLETE METABOLIC PANEL) 9 CMP (COMPLETE METABOLIC PANEL) 4 CMP (COMPLETE METABOLIC PANEL) 0 CMP (COMPLETE METABOLIC PANEL) 0 CMP (COMPLETE METABOLIC PANEL) 0 CMP (COMPLETE METABOLIC PANEL) 1 CMP (COMPLETE METABOLIC PANEL) 2 CMP (COMPLETE METABOLIC PANEL) 2 CMP (COMPLETE METABOLIC PANEL) 2 CMP (COMPLETE METABOLIC PANEL) 4 ACTH (ADRENOCORTICOTROPIC HORMONE) 07/16 CALCIUM 09/10/2016 CALCIUM 11/21/2023 CALCIUM 06/30/2018 PAIN CLINICAL DRUG SURVEY 12 , PAINS - SALIVA (Includes Heroin, Fentanyl and Tramadol w confirmations) 06/16/2017 LIPID PANEL (CHOL/TRIG/HDL/LDL) 02/28/20 21 LIPID PANEL (CHOL/TRIG/HDL/LDL) 01/28/20 20 CBC WITH DIFF 07/16/2018 CBC WITH DIFF 05/26/2015 CBC WITH DIFF 08/03/2015 CBC WITH DIFF 03/27/2015 CREATININE, BLD W/GFR 11/21/2023 CREATININE, BLD W/GFR 02/05/2022 CREATININE, BLD W/GFR 04/18/2022 PTH INTACT (PARATHYROID HORMONE) 019 CBC WITH ONCO AUTO DIFF (HWP) 02/01/2016 CBC WITH ONCO AUTO DIFF (HWP) 10/31/2014 CBC WITH ONCO AUTO DIFF (HWP) 02/02/2015 CBC WITH ONCO AUTO DIFF (HWP) 02/28/2020 CBC WITH ONCO AUTO DIFF (HWP) 06/28/2020 CBC WITH ONCO AUTO DIFF (HWP) 10/18/2020 CBC WITH ONCO AUTO DIFF (HWP) 11/02/2019 CBC WITH ONCO AUTO DIFF (HWP) 12/02/2019 CBC WITH ONCO AUTO DIFF (HWP) 01/28/2020 CBC WITH ONCO AUTO DIFF (HWP) 04/27/2021 CBC WITH ONCO AUTO DIFF (HWP) 06/14/2021 CBC WITH ONCO AUTO DIFF (HWP) 12/05/2020 CBC WITH ONCO AUTO DIFF (HWP) 02/27/2021 CBC WITH ONCO AUTO DIFF (HWP) 08/11/2018 CBC WITH ONCO AUTO DIFF (HWP) 02/05/2018 CBC WITH ONCO AUTO DIFF (HWP) 04/03/2018 CBC WITH ONCO AUTO DIFF (HWP) 09/02/2019 CBC WITH ONCO AUTO DIFF (HWP) 02/10/2019 CBC WITH ONCO AUTO DIFF (HWP) 05/11/2019 CBC WITH ONCO AUTO DIFF (HWP) 08/08/2016 CBC WITH ONCO AUTO DIFF (HWP) 11/29/2016 CBC WITH ONCO AUTO DIFF (HWP) 02/06/2017 CBC WITH ONCO AUTO DIFF (HWP) 05/29/2017 CBC WITH ONCO AUTO DIFF (HWP) 08/07/2017 CBC WITH ONCO AUTO DIFF (HWP) 12/01/2017 CBC WITH ONCO AUTO DIFF (HWP) 03/11/2022 CBC WITH ONCO AUTO DIFF (HWP) 04/17/2023 CBC WITH ONCO AUTO DIFF (HWP) 10/14/2022 CBC WITH ONCO AUTO DIFF (HWP) 04/21/2024 CBC WITH ONCO AUTO DIFF (HWP) 10/20/2023 CBC WITH ONCO AUTO DIFF (HWP) 10/21/2024 CBC WITH ONCO AUTO DIFF (HWP) 11/12/2024 T3 FREE (T3FR) 07/11/2020 T4 FREE (T4FR) 07/11/2020 TSH 07/11/2020 VITAMIN D, 25 LEVEL (TOTAL) 07/16/2018 MAMM Screen Bilateral Digital 2D 015 MRI Cervical Spine w/o contrast * 2016 T3 FREE, T4 FREE and TSH 07/16/2018 CORTISOL, BLOOD 07/16/2018 CBC (COMPLETE BLOOD COUNT) * 04/18/2016 CBC (COMPLETE BLOOD COUNT) * 06/14/2016 PAP (THIN PREP WITH IMAGING) 06/05/2016 OFF Cervical Epidural Procedure 07/15/[address] 03/27/[address] 03/27/[address] 03/27/[address] 03/27/[address] 03/27/2015 PAP (THIN PREP) w RELEX HPV IF ASCUS and Above 07/16/2018 PAP (THIN PREP) w RELEX HPV IF ASCUS and Above 06/18/2017 Flexible Sigmoidoscopy 08/27/2022 IRON, TIBC w SAT AND FERRITIN 10/14/2022 IRON, TIBC w SAT AND FERRITIN 10/21/2024 IRON, TIBC w SAT AND FERRITIN 10/20/2023 IRON, TIBC w SAT AND FERRITIN 04/21/2024 AGGLUTINATION 10/18/2020 Upper GI endoscopy 08/27/2022 CMP (COMP MET FROST) w/eGFR CKD-EPI 2024 CMP (COMP MET FROST) w/eGFR CKD-EPI 2024 CMP (COMP MET FROST) w/eGFR CKD-EPI 2024 Future Test Test Name Order Date CALCIUM 10/05/2015 CALCIUM 03/25/2016 MAMM Screen Bilateral Digital 2D 017 CALCIUM 12/08/2017 CALCIUM 06/15/2018 T3 FREE, T4 FREE and TSH 10/28/2018 CALCIUM 02/19/2021 PTH INTACT (PARATHYROID HORMONE) 023 CALCIUM 05/20/2022 LIVER (HEPATIC) PANEL 05/20/2022 VITAMIN D, 25 LEVEL (TOTAL) 05/20/2022 MAMM SCREEN BILAT MARIBETH 3D GLOBAL* 2022 CALCIUM 09/25/2023 MAMM SCREEN BILAT MARIBETH 3D GLOBAL* 2023 Next Appt Details Provider Name:Benny escobar, 03/14/2025 11:30:00 AM, [address], [place], [address], Provider Name:Benny escobar, 03/21/2025 10:00:00 AM, [address], [address], [place], [address], Provider Name:Benny escobar, 04/04/2025 11:30:00 AM, [address], [address], [place], [address], Provider Name:Radha Jenkins , 11/24/2025 10:30:00 AM, [address] [place] [address], [phone], Insurance Providers Payer Name Payer Address Payer Phone Subscriber Number Group Number Insured Name Patient Relationship to Insured Coverage Start Date Coverage End Date [place]IC[place] [address] [place] [address] [id number] Jameson Cobbelf - patient is the [id number] 2016[employer] [place] [employer] [place] [id number] [place] [id number] Jameson Arnoldelf - patient is the [id number] 2017 Medications Administered Medication Instructions Date of Administration Dosage Notes Celestone 3mg/mL mLCelestone 3mg/mL mLDepo-Medrol, 40 mg/mL04/17/20170.5 mLDepo-Medrol, 40 mg/mL04/17/20170.5 mLDepo-Medrol, 40 mg/mL09/24/20170.5 mL Depo-Medrol, 40 mg/mL wWBifkgai12/20/972382 mgKenalog, 40 mg/mL 11/24/2014Kenalog, 40 mg/mL02/08/2015Kenalog, 40 mg/mL04/18/2015Kenalog, 40 mg/mL06/13/2015Kenalog, 40 mg/mL08/08/2015Kenalog, 40 mg/mL10/03/2015Kenalog, 40 mg/mL02/07/2016120 mgKenalog, 40 mg/mL04/10/201680 mgKenalog, 40 mg/mL05/21/2016 120 mgKenalog, 40 mg/mL07/03/201660 mgKenalog, 40 mg/mL08/14/2016120 mgKenalog, 40 mg/mL09/23/2016120 uLMethylprednisolone Acetate 40mg/mL03/26/20180.5 mL Methylprednisolone Acetate 40mg/mL.5 mLMethylprednisolone Acetate 40mg/mL03/25/20190.5 mLMethylprednisolone Acetate 40mg/mL.5 mL Methylprednisolone Acetate 40mg/mL mLMethylprednisolone Acetate 40mg/mL03/16/20200.5 mLMethylprednisolone Acetate 40mg/mL12/10/91676.5 mL Methylprednisolone Acetate 40mg/mL.5 mLMethylprednisolone Acetate 40mg/mL.5 mLProlia (89188)10/10/201660 mgProlia (51042)07/01/201760 mgProlia (80234)01/12/201860 mgProlia (75828)01/11/201960 mgProlia (33338) 09/09/201960 mgProlia (61587)03/13/202060 mgProlia 60mg/mL04/05/201560 mgProlia 60mg/mL10/10/201560 mgProlia 60mg/mL07/13/201860 mgProlia 60mg/mL160 mg Oykhug85160 tbLjclaq40/09/597434 tvDsxzxh93/05/689672 jlHrowcu74/22/2023 60 rnZkgdkd31/11/108849 mgTriamcinolone 40 mg/ml mLZoledronic Acid (Reclast) 1 mg Medical (General) History Medical History History ICD Code Essential thrombocytosis asthmahypertensionPregnancy history - A2CAT migraine headachessinus infectionfingers turning whiteosteoporosisulcersRAhyperlipidemiastomach ulcers endometrial adenocarcinomadiverticulosis/diverticulitisgallstoneshepatitisGERD pneumoniaIDAskin canceracid refluxfibromyalgiaSurgical History Surgery Date(Month/Year) RT bicep repair, RT rotator cuff repair 06/17/2023 skin ca 04/10/2023 UGI, flex sig 08/27/2022 heart cath back surg w/ cage06/19/2021LT knee arthroscopycolonoscopy08/04/2018arthroscopic knee surgery - left knee for torn meniscus05/16/2015EGD09/29/2014colonoscopy 10/20/2012neck surgery-fusion C5-6 & C6-C709/11/2011TVT-O10/29/2007L thumb arthroplasty12/19/2006Total abdominal hysterectomy /BSO11/30/2002RT knee khtzuywclvi7053pfuncqzpqxqfyjy5073Gudmsokpohgscsu History Reason Date(Month/Year) food poisoning
--- OUTSIDE RECORDS SUMMARY | 2025-02-05 10:43 | XMS_ITS | Clinical Summary ---
Author Organization [employer] tem Address [id number] [address] [place] [address] Care Team Providers Care Shank Pinner Name Role Phone Juan Luis Wilkes MD Primary Care Provider [phone] Allergies Active AllergyReactionsCriticalityNoted WirvHmsywjjrSrfmbgflVxvaSyk20/11/2017 Jvhwlqnita38/11/2017 Other reaction(s): Intolerance-unknown Bacitracin-Polymyxin B008/30/20221391Ilghgakxnrv56/01/2022 Other Reaction(s): Difficulty Breathing, tachycardia Fluticasone Propion-RxftflejirFqsnyn03/11/2017 Other reaction(s): Irregular heart rate CltvtgnxwyQyxftXaj60/07/9186DnynjwgsBfsnLvv82/01/2022 Iqrphamm-Azomabqymvo-JbltptpohBwoaQkf94/07/9451Frvlyaaf-Qurebmegi-Kcztdggfpl 02/22/2014Polymyxin KWqlmObu44/01/7347Fczilnpihk29/01/2022 Other Reaction(s): Difficulty Breathing, tachycardia Tetanus And Diphtheria Mwbslnv4002/20/2023 Other Reaction(s): Unknown Tetanus Immune NcoreynoPfwbSgj51/01/2022 Has to take it in 2 doses Medications MedicationSigDispense QuantityRefillsLast FilledStart DateEnd DateStatus aspirin 81 mg Take by mouth daily.Active herbal drugs tablet Take by mouth. TUMERIC WITH CURUMINActive ferrous sulfate 325 (65 FE) mg tablet ferrous sulfate 325 mg (65 mg iron) tablet TAKE 1 TABLET BY MOUTH TWICE A DAYActive cholecalciferol, vitamin D3, 2,000 units capsule Take 1 capsule (2,000 Units total) by mouth in the morning. 250 capsule 03/13/2022ctive fluticasone propionate (FLONASE) 50 mcg/actuation nasal spray Indications:Acute non-recurrent frontal sinusitisSPRAY 2 SPRAYS INTO EACH NOSTRIL IN THE MORNING 48 mL ctive pantoprazole (PROTONIX) 40 mg EC tablet Take 1 tablet (40 mg total) by mouth every morning before breakfast.11/04/2022 Active levocetirizine (XYZAL) 5 mg tablet Take 1 tablet (5 mg total) by mouth every evening.Active traZODone (DESYREL) 100 mg tablet Indications:Insomnia, unspecifiedtake 1 tablet by mouth everyday at bedtime 90 tablet 08/13/2023ctive albuterol (PROVENTIL HFA;VENTOLIN HFA) 90 mcg/actuation inhaler Indications:Shortness of breathinhale 2 puffs by mouth every 4 hours as needed 18 g 09/28/2023ctive ubidecarenone/vitamin E mixed (COQ10 SG 100 ORAL) Take by mouth daily.Active zoledronic acid/mannitol-water (RECLAST IV) Infuse into a venous catheter.Active losartan (COZAAR) 100 mg tablet Take 1 tablet (100 mg total) by mouth in the morning. 90 tablet 5Active rosuvastatin (CRESTOR) 20 mg tablet Indications:Hyperlipidemia, unspecifiedTake 1 tablet (20 mg total) by mouth every morning. 90 tablet tive verapamil SR (CALAN-SR) 180 mg CR tablet Indications:Ventricular premature beatsTake 1 tablet (180 mg total) by mouth in the morning. 90 tablet 5Active Active Problems ProblemNoted DateDiagnosed DateShortness of anlyiv3805/14/2024ge-related osteoporosis without current pathological blhezphk35/29/2024Spondylolisthesis, lumbosacral qjfvnv5505/19/2023Tinnitus of left ear04/22/2022Other microscopic qcbiwulhm73/07/2022hest pain of uncertain usezvojc92/18/2017Hyperlipidemia 02/23/2015Syncope and ryibbogf84/09/2015Benign essential oirkwdxlzbgi36/02/2007 Ventricular premature depolarization Resolved Problems ProblemNoted DateDiagnosed DateResolved DateVentricular premature beats Immunizations ImmunizationAdministration DatesNext EryI6B8 Inj Preservative Free03/23/2009 Influenza High Dose Preservative Free IM02/12/2019,02/19/2017Influenza Vaccine, Quadrivalent, Waosuwbuim58/29/2023,01/18/2022,01/14/2021,01/25/2020Influenza, Im Flucelvax (Pf)01/05/2015Influenza, Im Trivalent Bznyfjftyxga83/26/2012Influenza, Injectable, quadrivalent (PF)01/27/2017Pneumococcal Conjugate 13-Valent 02/19/2017Pneumococcal Lwzdxsixjesnrk97/08/2019,07/07/2018,01/27/2017 Family History Medical HistoryRelationNameCommentsHypertensionBrotherLung cancerFatherCause of deathProstate cancerFatherNo Known ProblemsMaternal GrandfatherNo Known Problems Maternal GrandmotherCOPDMotherCoronary artery diseaseMotherHeart diseaseMother Peripheral vascular diseaseMotherStent in carotid arteryStrokeMotherHeart attack Paternal GrandfatherDied in his 50sMental illnessPaternal GrandmotherNot sure what a was but she was institutionalizedMeniere's diseaseSisterRelationName StatusCommentsBrotherAliveFatherDeceasedMaternal GrandfatherDeceasedMaternal GrandmotherDeceasedMotherDeceasedPaternal GrandfatherDeceasedPaternal GrandmotherDeceasedSisterAlive Social History Tobacco UseTypesPacks/DayYears UsedDateSmoking Tobacco: NeverSmokeless Tobacco: NeverAlcohol UseStandard Drinks/WeekCommentsYes0 (1 standard drink = 0.6 oz pure alcohol)occassionalAUDIT-CAnswerDate RecordedQ1: How often do you have a drink containing alcohol?Monthly or less03/13/2022Q2: How many drinks containing alcohol do you have on a typical day when you are drinking?1 or Q3: How often do you have six or more drinks on one occasion?Never03/13/2022verall Financial Resource Strain (CARDIA)AnswerDate RecordedHow hard is it for you to pay for the very basics like food, housing, medical care, and heating?Not hard at all03/13/2022HQ-2AnswerDate RecordedTotal Rqqcb557RAPARE - TransportationAnswerDate RecordedIn the past 12 months, has lack of transportation kept you from medical appointments or from getting medications?No 03/13/2022In the past 12 months, has lack of transportation kept you from meetings, work, or from getting things needed for daily living?No03/13/2022 ChildcareAnswerDate RecordedDo problems getting child development associate teacher make it difficult for you to work or study?No03/13/2022EmploymentAnswerDate RecordedDo you need help finding a local career center and/or a training program?No03/13/2022Hunger ScreeningAnswerDate RecordedWithin the past 12 months we worried whether our food would run out before we got money to buy more.Never True05/14/2024Within the past 12 months the food we bought just didn't last and we didn't have money to get more.Never True05/14/2024Purpose - LifeAnswerDate RecordedPurpose and direction in zbzoZzibwxh63/26/2021CommentsNoSex and Gender Information ValueDate RecordedSex Assigned at BirthNot on fileLegal OznOybrbp66/06/2015 11:22 AM EDTGender IdentityNot on fileSexual OrientationNot on file Last Filed Vital Signs Vital SignReadingTime TakenCommentsBlood Swpzdbpw130/7602 9:15 AM EST Mqxkr582805/14/2024 9:15 AM PHQNfkkwsbhtvb95.2 ??C (97.2 ??F)06/17/2023 10:39 AM EDTRespiratory Lvhi630906/17/2023 11:10 AM EDTOxygen Eygzutmngr28%05/14/2024 9:15 AM ESTInhaled Oxygen Concentration--Slzrxv97.6 kg (116 lb)05/14/2024 9:15 AM EST Sqhfip473.5 cm (5' 2 )05/14/2024 9:15 AM ESTBody Mass Index21.2202/10/2024 9:15 AM EST Plan of Treatment Health MaintenanceDue DateLast DoneCommentsMedicare Annual Wellness Visit 2DTaP,Tdap and Td Vaccines (1 - Tdap)08/29/19701027Iqrsqpwgh15/25/1992 Zoster (Shingles) Vaccine (1 of 2)08/29/2001Depression Lrximnjyg63/28/2025 06/05/2023Fall Risk Qunwfldng28/28/53559606/05/2023OVID-19 Vaccine ( - season), 03/27/2022, 07/23/2021, Additional history exists Influenza Cvcoztm53, 02/02/2023, 01/18/2022, Additional history existsAdult BMI Zqpvuaqkv54/07/44536605/14/2024Tobacco Biwwkvabl00/07/2026 05/14/20247722EaokdyhxsvnEhpzkkqqvobc93/23/2023 Medical Devices ImplantedTypeAreaManufacturerDevice IdentifierShelf Expiration DateModel / Serial / LotSystem Fx N Tack Swivelock Fiberlink Suturetape [facility] - Sn/A - [id number] Implanted:Qty: 1 on 06/17/2023 by Isac Woods Jr., [facility]Right: FevktohnGeololu82/31/[id number] / N/A / [id number] Biocomposite Knotless Swivelock [place], Self Punching With Blue #2 Suture Implanted:Qty: 1 on 06/17/2023 by Isac Woods Jr., [facility]Other ImplantRight: ShoulderArthrexAR-[id number] / N/A / [id number] Procedures Procedure NamePriorityDate/TimeAssociated DiagnosisCommentsHM COLONOSCOPYRoutine 08/27/2022from Last 3 Months or Most Recently Relevant to Health Maintenance Results * HM COLONOSCOPY (08/27/2022) Narrative Authorizing ProviderResult TypeResult StatusScanning Provider ExternalHEALTH MAINTENANCEFinal ResultPerforming OrganizationAddressCity/State/ZIP CodePhone Number MANUALLY TRANSCRIBED RESULTS from Last 3 Months or Most Recently Relevant to Health Maintenance [place] [id number] Care Teams Team MemberRelationshipSpecialtyStart DateEnd Date Juan Luis Wilkes MD PCP - GeneralFamily Medicine10/22/23
== END 2025-02-05 10:31 | disposition home or self-care (01) ==
LOC: LAB 10:38
PROVIDERS: PCP Family Medicine; Visit Provider Internal Medicine Rheumatology
DX: M54.50 Low back pain, unspecified (principal); M25.561 Pain in right knee; M25.551 Pain in right hip
CPT/HCPCS: 73502; 73562